=== PATIENT | male | born 1985 | race Caucasian/White ===

== ENCOUNTER → 2021-01-06 | Emergency (ER) | payer SELFPAY ==
[~2021-01-06] VITALS: Ht 190.5 cm; Wt 59.0 kg
--- NOTE | 2021-01-06 07:19 | NUR ---
PT BIBRA 89 FROM HOME C/O ANXIETY ATTACK "HE'S SCREAMING AND CRYING AFTER TAKING CANABIS AND GHB" PT IS AAOX3, NOT IN RESPIRATORY DISTRESS, V/S STABLE, KEPT RESTED AND COMFORTABLE. WILL CONTINUE TO MONITOR.
--- NOTE | 2021-01-06 09:02 | NUR ---
PT GETTING UP AND WONDERING AROUND BACK BED SOFT RESTAINTS APPLIED SO PATIENT DOEN'T FALLL, CONT TO MONITOR
[2021-01-06 09:03] VITALS: BP 111/63
--- NOTE | 2021-01-06 09:27 | NUR ---
PT SCREAMING AND YELLING WANTS TO LEAVE . NOT ON A HOLD . LEFT AMA
--- NOTE | 2021-01-06 09:28 | NUR ---
Patient does not wish to proceed with medical care recommended by ( ). Patient given information related to possible complications, up to and including , which could occur as a result of leaving the hospital at this time. Patient verbalizes understanding of risks involved due to leaving against medical advice. Patient has signed AMA form.
== END | disposition home or self-care (01) ==
LOC: ER 07:22
DX: F12.90 Cannabis use, unspecified, uncomplicated (principal); F19.10 Other psychoactive substance abuse, uncomplicated; F10.129 Alcohol abuse with intoxication, unspecified; Y90.9 Presence of alcohol in blood, level not specified